=== PATIENT | female | born 1950 | race Caucasian/White ===

== ENCOUNTER 2019-11-15 08:05 | Observation (INO) | payer BC ==
[2019-11-13 10:41] VITALS: BP 131/69
[2019-11-13 11:13] LABS: BASOPHILS # (AUTO) 0.02 x10^3/uL (0-0.1); BASOPHILS % (AUTO) 0 % (0-1); EOSINOPHILS # (AUTO) 0.06 x10^3/uL (0-0.4); EOSINOPHILS % (AUTO) 1 % (1-7); LYMPHOCYTES # (AUTO) 2.17 x10^3/uL (1-3.4); LYMPHOCYTES % (AUTO) 36 % (22-44); MD NO; MEAN CORPUSCULAR HEMOGLOBIN 32.6 pg (27.0-34.8); MEAN CORPUSCULAR HGB CONC 33.6 g/dL (32.4-35.8); MEAN PLATELET VOLUME 8.2 fL (7.4-10.4); MONOCYTES # (AUTO) 0.56 x10^3/uL (0.2-0.8); MONOCYTES % (AUTO) 9 % (2-9); NEUTROPHILS # (AUTO) 3.28 x10^3/uL (1.8-6.8); NEUTROPHILS % (AUTO) 54 % (42-75); PLATELET COUNT 234 x10^3/uL (130-400); RED BLOOD COUNT 4.43 x10^6/uL (3.82-5.3); RED CELL DISTRIBUTION WIDTH 13.1 % (9.6-15.2)
[2019-11-13 11:22] LABS: INTERNATIONAL NORMALIZED RATIO 0.94 (0.93-1.1)
[2019-11-13 11:24] LABS: ALANINE AMINOTRANSFERASE 16 U/L (12-78); ALBUMIN 3.9 g/dL (3.4-5.0); ANION GAP 6 mmol/L (5-15); BILIRUBIN, DIRECT 0.2 mg/dL (0.1-0.2); CALCIUM 9.1 mg/dL (8.5-10.1); CHLORIDE 110 mmol/L (98-107)
[2019-11-13 11:26] LABS: ALKALINE PHOSPHATASE 75 U/L (45-117); BILIRUBIN,INDIRECT 0.4 mg/dL (0.0-2.0); BILIRUBIN,TOTAL 0.6 mg/dL (0.2-1.0); CHOL/HDL RATIO 2.4; CHOLESTEROL, TOTAL 199 mg/dL (140-239); HDL CHOL % 42 % (28-40); HDL CHOLESTEROL (DIRECT) 84 mg/dL (40-60); LDL CHOLESTEROL,CALCULATED 97 mg/dL (54-169); LDL/HDL RATIO 1.2 (0.5-3.0); TOTAL PROTEIN 7.4 g/dL (6.4-8.2); TRIGLYCERIDES 88 mg/dL (50-200); VLDL CHOLESTEROL 18 mg/dL (0-25)
[~2019-11-15] VITALS: Ht 165.1 cm; Wt 66.0 kg
[~2019-11-15 08:05] MED LIST: APIX5TAB PO; CITA20TA9 PO; EVOL140P3 INJ
[2019-11-15] MEDS ORDERED: SODIUM CHLORIDE 0.9% 1,000 ML IV SCH ×2 (08:11→12:03)
[2019-11-15] MEDS ORDERED: DIPHENHYDRAMINE 50 MG/ML, 1ML IVPush ONE (08:30)
[2019-11-15] MEDS ORDERED: DIPHENHYDRAMINE 50 MG/ML, 1ML ONE (08:39)
[2019-11-15] MEDS ORDERED: MIDAZOLAM 1 MG/ML, 5ML ONE (10:02)
[2019-11-15] MEDS ORDERED: FENTANYL PF 100 MCG/2ML ONE ×2 (10:03→11:33)
[2019-11-15] MEDS ORDERED: LIDOCAINE-MPF 1%, 5ML ONE (10:03)
[2019-11-15] MEDS ORDERED: HEPARIN 1,000 UNITS/ML, 10ML ONE (10:03)
[2019-11-15] MEDS ORDERED: VERAPAMIL 2.5 MG/ML, 2ML ONE (10:03)
[2019-11-15] MEDS ORDERED: NITROGLYCERIN 5 MG/ML, 10ML ONE (10:17)
[2019-11-15] MEDS ORDERED: LIDOCAINE 2%, 20ML ONE (11:15)
[2019-11-15] MEDS ORDERED: BIVALIRUDIN 250 MG ONE ×2 (11:33→12:31)
[2019-11-15] MEDS ORDERED: TICAGRELOR 90 MG TABLET ONE (11:33)
[2019-11-15] MEDS ORDERED: ASPIRIN 325 MG TABLET EC ONE (11:58)
[2019-11-15] MEDS ORDERED: BIVALIRUDIN 250 MG in SODIUM CHLORIDE 0.9% 50 ML IV SCH (12:03)
[2019-11-15] MEDS ORDERED: ONDANSETRON 2MG/ML, 2ML IVPush PRN (12:30)
[2019-11-15] MEDS ORDERED: ACETAMINOPHEN 325 MG TABLET PO PRN (12:30)
[2019-11-15] MEDS ORDERED: ZOLPIDEM 5MG TABLET PO PRN (12:30)
[2019-11-15] MEDS ORDERED: EVOLOCUMAB HOMEINJ SCH (12:30)
[2019-11-15 13:07] VITALS: BP 133/79
[2019-11-15 19:48] VITALS: BP 110/69
[2019-11-15] MEDS: TICAGRELOR 90 MG TABLET PO SCH (21:28)
[2019-11-16 00:44] VITALS: BP 113/68
[2019-11-16 05:40] LABS: ANION GAP 3 mmol/L (5-15); CALCIUM 8.5 mg/dL (8.5-10.1); CHLORIDE 114 mmol/L (98-107)
[2019-11-16 05:41] LABS: CREATININE 0.85 mg/dL (0.55-1.02)
[2019-11-16 06:55] VITALS: BP 118/78
[2019-11-16] MEDS ORDERED: CLOPIDOGREL 75 MG TABLET PO SCH (09:00)
[2019-11-16] MEDS ORDERED: EZETIMIBE 10 MG TABLET PO SCH (09:00)
[2019-11-16] MEDS ORDERED: ASPIRIN 81 MG TABLET EC PO SCH (09:00)
[2019-11-16] MEDS ORDERED: CITALOPRAM 20 MG TABLET PO SCH (09:00)
[2019-11-16] MEDS ORDERED: TICA90TA PO (09:10)
[2019-11-16] MEDS ORDERED: ACET325T26 PO (09:10)
[2019-11-16] MEDS ORDERED: NITR0.4T28 SL (09:10)
[2019-11-16 09:13] VITALS: BP 134/73
[2019-11-16] MEDS: TICAGRELOR 90 MG TABLET PO SCH (09:15)
== END 2019-11-16 10:39 | disposition home or self-care (01) ==
LOC: CACL 08:05 → 5SO 12:03 → CACL 12:19 → DCLOUNGE 11-16 10:15
PROVIDERS: ADMIT Internal Medicine Cardiovascular Disease; ATTEND Internal Medicine Cardiovascular Disease
DX: I20.0 Unstable angina (principal); E78.2 Mixed hyperlipidemia; I82.890 Acute embolism and thrombosis of other specified veins; I26.99 Other pulmonary embolism without acute cor pulmonale; Z79.899 Other long term (current) drug therapy; Z79.01 Long term (current) use of anticoagulants; Z86.711 Personal history of pulmonary embolism
CPT/HCPCS: 36415; 80048; 80061; 80076; 85025; 85610; 85730; 93005; 93458; 96365; 96366; 96375; 99156; 99157; C1760; C1769; C1874; C1887; C1894; C9600; G0378; J0583; J1200; J2250; J3010; J3490; Q9967; J1644

== ENCOUNTER → 2020-04-30 | Outpatient (CLI) | payer BC ==
[~2020-04-30] MED LIST changes: +ACET325T26 PO; +NITR0.4T28 SL; +TICA90TA PO
== END | disposition home or self-care (01) ==
LOC: RAD 12:43
PROVIDERS: ATTEND Internal Medicine Cardiovascular Disease
DX: I26.99 Other pulmonary embolism without acute cor pulmonale (principal)
CPT/HCPCS: 71045; 78582; A9540; A9558